=== PATIENT | male | born 1960 | race Caucasian/White ===

== ENCOUNTER 2023-08-24 01:23 | Outpatient (CLI) | payer OTHER, SELFPAY ==
--- NOTE | 2023-08-24 07:00 | DI.MRI_ITS ---
Exam(s) MR LUMBAR SPINE WO EXAM: MR LUMBAR SPINE WO CLINICAL HISTORY: LOW BACK PAIN, LUMBAR DISC DISEASE WITH RADICULOPATHY,M51.16. TECHNIQUE: Multiplanar multisequence MRI of the Lumbar spine was performed. COMPARISON: No exams were available for comparison FINDINGS: Five lumbar vertebrae are presumed. There is a degenerative scoliosis in the lumbar spine. No compression fractures nor ominous osseous lesions. Conus medullaris is at normal level. There is no evidence of conus mass nor subjacent clumping of in trathecal nerve roots to suggest arachnoiditis. The distal thecal sac appears unremarkable.There is no evidence of Tarlov intrasacral cysts nor other significant findings within the sacral canal Bones:There are no fractures nor ominous osseous lesions in the lumbar vertebral bodies and visualize d sacrum. With respect to the individual levels... T12-L1: Annular bulging. No dominant disc herniation. Central canal dimensions are normal. No fora maria e stenosis. L1-2: There is disc space narrowing which is more prominent on the left side of the disc space and th ere are Modic type 1 sub endplate marrow edema changes on the left side of this space and there are l ateral left osteophytes evident at this level. There is some annular bulging without a dominant disc herniation. No central canal stenosis evident. On the left side there is mild foraminal stenosis d ue to disc height loss on the left side and annular bulging into the floor of the exiting neural fora men. Also some degenerative change in the left facet joint evident. The exiting right neural forame n is nicely patent at this level. L2-3: At this level there is disc space narrowing which is again noted be slightly more prominent on the left side. There is relatively symmetrical posterior annular bulging. No dominant disc herniati on. Central canal dimensions are normal. No significant foraminal stenosis on either side. Mild fa cet arthropathy. L3-4: This level exhibits more prominent disc space narrowing on the right side. There is broad vasyl lar bulging which is slightly more prominent on the right side. Particularly at the level of the exi ting right neural foramen and there is posterior osseous lipping at this level also noted. Central c anal dimensions are lower normal. No foraminal stenosis on the left side. Mild foraminal stenosis o n the right side due to the asymmetric height loss and bulging annulus and some degenerative change i n the right facet joint at this level. L4-5: This level exhibits uniform prominent disc space narrowing. There is broad posterior annular b ulging and posterior osseous lipping. This is also more prominent on the right side, similar to 1 le yeyo above. Central canal dimensions are lower normal. Exiting left neural foramen is patent. Howev er, there is moderate foraminal stenosis on the right side due to the annular bulging and disc height loss and some facet arthropathy on the right. L5-S1: This level exhibits advanced uniform disc height loss and Modic type 2 sub endplate marrow fat ty changes on both sides the disc space. In addition, there is mild anterolisthesis of L5 upon S1 wh ich is more evident on the right than the left side of this disc space and related to the more advanc ed degenerative facet joint changes on the right than the left side. There is no obvious pars defect s at L5. On the right side there is impingement of the exiting nerve root between the bulging annulu s in the exiting neural foramen and the overlying right L5 pedicle. Slightly lesser amount of the sa me is seen on the opposite-left side. Soft tissues: paraspinal soft tissues appear unremarkable. IMPRESSION: 1. Multilevel findings as described individually above. 2. There is no central spinal canal stenosis but there is multilevel asymmetric foraminal stenosis. In addition, at L5-S1 level there is impingement of the exiting nerve roots in the exiting neural for valentín, slightly more so on the right side for reasons described above. At L4-5 level there is elemen t of foraminal stenosis on the right side only. At L3-4 level there is also right-sided foraminal st enosis. DATA REPOSITORY:
--- NOTE | 2023-08-24 07:00 | DI.MRI_ITS ---
Exam(s) MR LOWER JOINT LT WO EXAM: MR LOWER JOINT LT WO CLINICAL HISTORY: left hip pain,TROCHANTERIC BURSITIS,TENDINITIS,FEMOROACETABULAR IMPINGEMENT TECHNIQUE: Multiplanar multisequence MRI of the hip was performed. COMPARISON: CR XR HIP SINGLE W PELVIS from 03/19/2022 FINDINGS: MARROW:There is no evidence of fracture, bone contusion, nor avascular necrosis. There are no signif icant osseous lesions.There is no significant osseous excrescence at the femoral head-neck junction t o suggest the presence of cam-type TRUPTI. EFFUSION: There is no evidence of joint effusion. HIP JOINT SPACE: There is mild-moderate uniform thinning of the articular cartilage. No dominant fem oral head osteophytes evident but there are few degenerative subarticular cyst in the superior aspect of the acetabulum. LABRUM: There is signal abnormality within the substance of the posterior labrum which is most probab ly degenerative. No evidence of paralabral cyst. TENDONS: There is tendinitis signal with partial tearing of the gluteus medius tendon. There is also liver of fluid at this level consistent with mild trochanteric bursitis. There is some intraosseous edema in the superior aspect of the greater trochanter. ISCHIAL TUBEROSITY/HAMSTRING: There is no abnormal intraosseous signal in the ipsilateral ischial tub erosity nor tear of the common hamstrings tendon attachment site at this level. OTHER: There is no abnormal intramuscular signal within the quadratus femoris to suggest the presence of impingement syndrome at this level. IMPRESSION: 1. Findings are consistent with gluteus medius tendinitis and ipsilateral trochanteric bursitis. The re is also some adjacent edema in the superior aspect of the left greater trochanter. 2. Correlation with any recent therapeutic injections into this area is recommended as this can resul t in similar MRI findings. 3. DATA REPOSITORY:
--- NOTE | 2023-08-24 18:19 | DI.VRAD_ITS ---
PROCEDURE INFORMATION: Exam: MR Left Lower Extremity Joint Without Contrast; Hip Exam date and time: 08/24/2023 9:25 AM Age: 63 years old Clinical indication: Patient HX: Left hip pain, trochanteric bursitis, tendinitis, femoroacetabular impingement TECHNIQUE: Imaging protocol: Magnetic resonance imaging of the left lower extremity joint without contrast. Exam focused on the hip. COMPARISON: MR LOWER EXT LT W/WO CON NONJT 10/07/2021 9:30 AM FINDINGS: Bones/joints: Mild degenerative changes in the bilateral hip joints and bilateral sacroiliac joints as well as the pubic symphysis. Labrum: Unremarkable. No tear. TENDONS: Tendons of iliopsoas group: Unremarkable. No evidence of tear. Tendons of medial compartment of thigh: Unremarkable. No evidence of tear. Tendons of lateral rotators of hip: Unremarkable. No evidence of tear. Tendons of gluteal group: Small amount of fluid seen between the tendon of the left gluteus medius muscle in the adjacent portion of the left greater trochanter compatible with partial/tendinosis of the gluteus medius tendon. Mild abnormal signal in the tendon of the left gluteus minimus compatible with chronic tendinosis. Mild marrow edema in the posterosuperior greater trochanter of the left femur underlying the small area of fluid adjacent to the gluteus medius tendon, presumably relating to overlying tendinosis. No other areas of focal marrow edema. Soft tissues: Unremarkable. IMPRESSION: Findings suggesting partial tearing/tendinosis of the left gluteus medius tendon with associated changes in the adjacent portion of the greater trochanter as described. Suspected mild tendinosis of the left gluteus minimus tendon as well. Dictated and Authenticated by: Fred De La O MD. Ordering:PARISH Jones MD
== END 2023-08-24 01:43 ==
PROVIDERS: PCP Internal Medicine; Visit Provider Student in an Organized Health Care Education/Training Program
DX: M51.16 Intervertebral disc disorders with radiculopathy, lumbar region (principal); M25.851 Other specified joint disorders, right hip; M25.852 Other specified joint disorders, left hip; M70.62 Trochanteric bursitis, left hip; M76.892 Other specified enthesopathies of left lower limb, excluding foot
CPT/HCPCS: 73721; 72148

== ENCOUNTER 2023-10-23 07:19 | Day surgery (SDC) | payer OTHER, SELFPAY ==
[2023-10-23] VITALS (10 sets, daily range): BP systolic 85–132; BP diastolic 57–91; PULSE 57–74; RESP 12–16; TEMP 36.4–36.8; O2SAT 94–98; BMI 31.8
--- NOTE | 2023-10-23 07:25 | W.PM.DSUDISC ---
Date of service: 10/23/23 Time of Service: 12:00 Discharge Plan Disposition Patient Disposition: Home Discharge Details Attending Provider: Fabien Quiroz Primary Care Provider: Teri Ptots Home Meds and New Rx's Prescriptions: New oxycodone 5 mg tablet 5 - 10 mg PO Q4H MDD 30 mg PRN (Reason: moderate to severe pain) Qty: 7 0RF Continued acetaminophen 500 mg capsule 500 mg PO Q6H PRN aspirin 81 mg tablet,delayed release (DR/EC) 81 mg PO DAILY atorvastatin 80 mg tablet 80 mg PO QHS clopidogrel 75 mg tablet 75 mg PO DAILY gabapentin 100 mg capsule 300 mg PO TID ibuprofen 200 mg tablet 600 mg PO Q6H PRN cyanocobalamin (vitamin B-12) [Vitamin B-12] 1,000 mcg tablet 1,000 mcg PO DAILY amoxicillin 500 mg capsule Discharge Instructions Additional Instructions: Surgery: Left hip endoscopy with iliotibial band release and trochanteric bursectomy Activity: Weightbearing as tolerated. May use crutches or walker as needed for a few days if needed. Gradually advance to full range of motion and activity over the next few weeks. A physical therapy prescription will be provided separately in the office at follow up if needed. Prescriptions: Resume home aspirin and clopidogrel tomorrow morning May use ibuprofen as prescribed by primary care doctor for moderate pain and swelling Oxycodone 5 mg take 1-2 every 4-6 hours as needed for severe pain You may use [id number] Tylenol (acetaminophen) as needed for mild to moderate pain. These pain medications may be taken all at once or in different combinations as needed. Also, recommend Colace (docusate) as a stool softener as surgery and pain medicine cause constipation. You may try [id number] diphenhydramine (Benadryl) 25-50 mg nightly as a sleep aid Dressings: Leave dressing in place for 3 days. May then remove and leave open to air or cover incisions with Band-Aids. Leave the sticky Steri-Strips in place until they fall off or remove them after you shower. May shower after 5 days. Follow-up: 10-[address] Quiroz You may take off the leg compression stockings this evening at home. You may also leave them on a few days longer if you have a history of leg swelling or edema. Let us know right away if you develop any redness, drainage, fevers, chest pain, or trouble breathing. Do not drink alcohol or drive for at least 24 hours after anesthesia. Please call the office during business hours with any questions or concerns. Discharge Orders Discharge Orders: Discharge Order (Routine); Ordered 10/23/23 Ordered By: Fabien Quiroz DS: Diagnosis Discharge Diagnosis (1) Trochanteric bursitis of left hip: Status: Acute
[2023-10-23] MEDS: Lactated Ringers 1,000 ML 30 ML IV (08:15)
--- NOTE | 2023-10-23 08:37 | ANES.PREOP_ITS ---
General Info Date of Service Date Performed: 10/23/23 Height: 5 ft 11 in Weight: 103.8 kg Body Mass Index (BMI): 31.8 Surgical Procedure: Operation Date: 10/23/23 09:20 Proposed Procedure Side Surgeon p Endoscopic IT Band Release w/ Trochanteric Bursectomy & Possible Repair Left Fabien Quiroz MD Meds Allergies and Home Medications Allergies Allergy/AdvReac Type Severity Reaction Status Date / Time codeine Allergy Severe Swelling/Ed Verified 10/23/23 07:30 ace Home Medication Medication Instructions Recorded acetaminophen 500 mg capsule 500 mg PO Q6H PRN 05/28/23 aspirin 81 mg tablet,delayed 81 mg PO DAILY 05/28/23 release atorvastatin 80 mg tablet 80 mg PO QHS 05/28/23 clopidogrel 75 mg tablet 75 mg PO DAILY 05/28/23 gabapentin 100 mg capsule 300 mg PO TID 05/28/23 ibuprofen 200 mg tablet 600 mg PO Q6H PRN 05/28/23 cyanocobalamin (vitamin B-12) 1,000 mcg PO DAILY 10/20/23 1,000 mcg tablet (Vitamin B-12) amoxicillin 500 mg capsule mg 10/23/23 oxycodone 5 mg tablet 5 - 10 mg (1 - 2 x 5 mg) PO Q4H 10/23/23 PRN moderate to severe pain #7 tabs Current Visit Medications: Current Medications Generic Name Dose Route Start Last Admin Trade Name Freq PRN Reason Stop Dose Admin Acetaminophen 1,000 mg 10/23/23 07:24 Acetaminophen 500 Mg Tab PO 11/22/23 07:23 Q6H PRN PRN Ringer's Solution 1,000 mls @ 30 mls/hr 10/23/23 06:00 IV 10/23/23 23:59 [facility] Cefazolin Sodium/Dextrose 2 gm in 50 mls @ 100 mls/hr 10/23/23 06:00 Ancef Duplex IVPB 10/23/23 23:59 [facility] IV Miscellaneous Supplies 1 each 10/23/23 06:00 Iv Access IV 10/23/23 23:59 DIRECTED JOSE G Naproxen 250 - 500 mg 10/23/23 07:24 Naproxen 500 Mg Tab PO 11/22/23 07:23 BID PRN PRN Oxycodone HCl 0 mg 10/23/23 07:24 Oxycodone 5 Mg Tab PO 11/22/23 07:23 Q3H PRN PRN Pain Sodium Chloride 0 ml 10/23/23 06:00 Normal Saline Flush 10 Ml Syr IV 10/23/23 23:59 PRN PRN Sodium Chloride 0 ml 10/23/23 06:00 Normal Saline 10 Ml Vial IJ 10/23/23 23:59 DIRECTED PRN Sterile Water 0 ml 10/23/23 06:00 Water,Injection,Sterile 10 Ml Vial IJ 10/23/23 23:59 DIRECTED PRN PFSH Active Problems Active Problems: Problem Status Onset Code Lumbar disc disease with radiculopathy M51.16 Trochanteric bursitis of left hip M70.62 Tendonitis involving left hip abductors M76.892 Femoroacetabular impingement of both hips M25.851, M25.852 Peripheral neuropathy G62.9 Medical History Medical History (Updated 10/20/23 @ 09:25 by Zuleyka Covington RN) COPD (chronic obstructive pulmonary disease) Alcohol dependence Inflammatory dermatosis Hyperlipidemia Hypertension Cerebrovascular accident Surgical History Surgical History (Updated 10/20/23 @ 09:26 by Zuleyka Covington RN) History of hand surgery History of cataract surgery H/O hernia repair History of colonoscopy Status post right knee replacement Alcohol Alcohol Intake: former Substance Use Substance use: Never Substance use type: does not use Vital Signs and Lab Results Vital Signs Most Recent Vital Signs in EMR: Most Recent Vital Signs Temp Pulse Resp BP Pulse Ox 36.7 C 68 16 119/89 98 10/23/23 07:31 10/23/23 07:31 10/23/23 07:31 10/23/23 07:31 10/23/23 07:31 Lab Results Blood Type / Crossmatch: 2 No Data to Display Complete Blood Count: 2 No Data to Display Complete Metabolic Panel: 2 No Data to Display Liver Function Panel: 2 No Data to Display Coagulation Panel: 2 No Data to Display Cardiac Panel: 2 No Data to Display Arterial Blood Gas: 2 No Data to Display Venous Blood Gas: 2 No Data to Display Pancreas Panel: 2 No Data to Display Thyroid Panel: 2 No Data to Display Infectious Disease: 2 No Data to Display Blood Cultures: 2 No Data to Display Toxicology Panel: 2 No Data to Display Anesthesia Assessment and Plan Anesthesia History Personal History: No History of Anesthesia Complications Family History: No Family History of Anesthesia Complications Exercise Tolerance Exercise Tolerance: Metabolic Equivalents>4 Pertinent Negatives Pertinent Negatives: No Symptoms of GERD and No Major Cardiovascular Symptoms or Complaints Cardiac & Pulmonary Exam Cardiac Exam: Normal S1/S2 Heart Sounds Pulmonary Exam: Clear Bilateral Breath Sounds Implantable Cardiac Device Does patient have a Pacemaker or an ICD?: No Airway Exam Known Difficult Airway: No Mallampati Class: 2 Mouth Opening: Normal (> 3cm) Thyromental Distance: Greater than 3 cm Neck Range of Motion: Full ROM Neck Circumference: Normal Teeth Condition: Normal Dentition Tooth Numberin 1. Temporary crown ASA Classification ASA Score: ASA 2 Emergency Case?: No NPO Status NPO Status: NPO Clears >2 hours, Solids >8 hours Anesthesia Plan Resuscitation Status: Full Code Anesthesia Technique: General Anesthesia Airway Planned: LMA Monitors Used: Standard Monitors
--- NOTE | 2023-10-23 09:01 | W.PM.OP ---
Date of service: 10/23/23 Time of Service: 09:15 Operative Note Operative Note DATE OF PROCEDURE: 10/23/23 PRE-OP DIAGNOSIS: Left hip 1. Iliotibial band syndrome 2. Trochanteric bursitis 3. Possible gluteal tendon tear POST-OP DIAGNOSIS: same Left hip 1. Iliotibial band syndrome 2. Trochanteric bursitis 3. No significant gluteal tendon tear PROCEDURE: Left hip endoscopic 1. Iiliotibial band release, CPT# 35371 2. Trochanteric bursectomy, CPT# 14131 SURGEON: Fabien Quiroz ANESTHESIA TYPE: Local By Surgeon and General LMA/ETT Refer to Anesthesia Record ESTIMATED BLOOD LOSS: 5 COMPLICATIONS: None Patient was transported to: PACU Patient's condition: stable Indications: Please see complete medical record for details. Findings: Thickened iliotibial band. Inflamed trochanteric bursitis. Gluteus medius hypermobility without any significant structural tearing. Intact gluteus minimus. Procedure Description: In the operating room, general anesthesia was induced. The patient was positioned supine on the [place] operating room table. All bony prominences were well-padded. Preoperative antibiotics were administered. The hip was prepped and draped in the usual sterile fashion. The correct patient, procedure, and side of the procedure were all verified prior to incision. 30 cc of 0.25% bupivacaine containing epinephrine was infiltrated about the subcutaneous tissues for the planned anterior lateral and distal anterolateral portals as well as deeply over the greater trochanter. A knife was used to incise the skin for the anterior lateral and distal anterolateral portals followed by blunt dissection subcutaneously. Under fluoroscopic guidance, a switching stick and arthroscope were inserted localizing the iliotibial band over the greater trochanter. Blunt dissection and the mechanical shaver were used to resect fat and overlying tissue about the center of the iliotibial band and carefully expose the anterior and posterior margins. Once there was adequate exposure of the IT band, the greater trochanter was again localized under fluoroscopic guidance with a spinal needle inserted through the skin down to bone. This central area was marked using the radiofrequency ablator. A [place] blade was brought in and used to create a 2 cm longitudinal incision in line with the IT band fibers as well as extending it in a cruciate fashion with 2 cm incisions anteriorly and posteriorly. The radiofrequency ablator was used to achieve hemostasis. The mechanical shaver was then used to debride the IT band released edges exposing the trochanteric bursa. The mechanical shaver was then used to excise the trochanteric bursa taking care to protect musculature about the margins of the greater trochanter as well as neurovascular structures especially posteriorly. There was excellent visualization of the vastus lateralis as well as gluteus medius confirming appropriate bursa excision. The hip was brought through range of motion including internal and external rotation and there was no impinging iliotibial band tissue or remaining pathologic bursa. The viewing and working portals were switched and appropriate IT band release, trochanteric bursa excision, and hemostasis confirmed. The gluteus tendons were examined and fluoroscopy used to confirm appropriate positioning about the greater trochanter. The superficial side was intact and healthy through the muscle tendon junction to the greater trochanter bone. There might have been hypermobility of the gluteus medius centrally. On probing there was no structural tendon tearing or defect. Decision was made to omit any partial undersurface tendon repair or takedown and repair.. Suction was used to remove fluid from the endoscopic space. The portals were closed using 3-0 Monocryl in a buried fashion. Steri-Strips were applied over the incisions followed by Xeroform, 4 x 4 gauze, an ABD pad, and secured with tape. The patient awoke from anesthesia without complication and was transferred to the recovery room in a stable condition.
[2023-10-23] MEDS: ceFAZolin 2 GM/50 ML BAG IVPB (09:41)
[2023-10-23] MEDS: Bupivacaine 0.25% Pres-Free 30 ML VIAL (10:08)
--- NOTE | 2023-10-23 10:23 | DI.RAD_ITS ---
Exam(s) XR HIP LT IN OR EXAM: XR HIP LT IN OR CLINICAL HISTORY: IT band TECHNIQUE: 2D and realtime digital imaging was performed. CONTRAST MATERIAL: Refer to procedure report. COMPARISON: No exams were available for comparison FINDINGS: Fluoroscopy was provided for Dr. Quiroz in the OR . Please refer to the procedure report for complet e details. Clarkr=0.95 mGy IMPRESSION: RADIATION DOSE DELIVERED:
[2023-10-23] MEDS: fentaNYL 100 MCG/2 ML VIAL IVP (11:24)
[2023-10-23] MEDS: Ketorolac 15 MG/ML VIAL IVP (11:30)
--- NOTE | 2023-10-23 12:37 | W.ANESPOSTOP ---
Postoperative Evaluation Date, Time and Location Date Performed: 10/23/23 Time Performed: 11:48 Patient Location: Day Surgery Unit Vital Signs Most Recent Imported Vital Signs: Most Recent Vital Signs Temp Pulse Resp BP Pulse Ox 36.5 C 59 L 16 129/88 95 10/23/23 12:11 10/23/23 12:11 10/23/23 12:11 10/23/23 12:11 10/23/23 12:11 Pain Score Most Recent Pain Score: Most Recent Pain Score Pain Level 1 10/23/23 12:11 Assessment Mental Status: Awake (Alert & Oriented to Patient Baseline) Airway and Respiratory Function: Patent airway with normal (patient baseline) respiratory exam Cardiovascular Function: Hemodynamically Stable Hydration Status: Adequately Hydrated Nausea & Vomiting: No Nausea or Vomiting Pain: Pain is tolerable per patient Peripheral Nerve Block: Patient did not receive a nerve block Postoperative Comments:: Did report feeling unable to take full breaths while waking up, patient states he can take full breaths now, otherwise denying SOB or Chest Pain. I did discuss that if there is any further worsening of these symptoms to let us know.
== END 2023-10-23 12:48 | disposition home or self-care (01) ==
PROVIDERS: PCP Internal Medicine; Visit Provider Student in an Organized Health Care Education/Training Program
PROC: (CPT 29863; principal; 2023-10-23 09:00)
DX: M70.62 Trochanteric bursitis, left hip (principal); M76.892 Other specified enthesopathies of left lower limb, excluding foot; M25.852 Other specified joint disorders, left hip
CPT/HCPCS: 27062; 27305; 73501; J0131; J0690; J1100; J1885; J2001; J2250; J2405; J2704; J3010